=== PATIENT | male | born 1990 | race Caucasian/White ===

== ENCOUNTER 2018-10-27 16:26 | Emergency (ER) | payer OTHER, BC, SELFPAY ==
[2018-10-27 16:28] VITALS: BP 151/102; PULSE 79; RESP 16; TEMP 36.9; O2SAT 97; BMI 27.1
--- NOTE | 2018-10-27 17:13 | ED.VISSUMM ---
- ER Visit Summary Date of Service: 10/27/18 Chief Complaint: Left thumb laceration History of Present Illness: The patient is a 28 M denies fever, chills cut the base of his left at work today. This occurred about 1545 PM. No injuries. Tetanus is not up-to-date. Patient is right-hand dominant Physical Examination: Healthy male no acute distress vital signs are stable afebrile. Exam normal except the base of the left thumb there is a 3 cm laceration. Skin and subcu tissue. Otherwise the hand and thumb are neurovascular intact. No signs of infection. No signs of foreign body. Normal range of motion of his left thumb. Sensation normal cap refill distally. Test Results: None Emergency Department Course and Treatment: Tetanus updated Procedure note: Left thumb laceration. Locally anesthetized with plain lidocaine. Cleaned using Shur-Clens. Copiously irrigated with saline. Explored. Closed using simple interrupted 4-0 Ethilon suture. Proper hemostasis wound closure obtained. One length approximately 3 cm. Treatment Plan: Wound care. Suture removal in 10 days. Watch for any signs of infection. Disposition: Discharge Impression: Left thumb 3 center laceration with ER repair Tetanus updated Worker's Comp. injury This note was generated with [employer] dictation software. It may contain incorrect words, spelling, and punctuation that were not noted in review of the chart prior to signing ED Disposition - Plan for ED Patient: Referrals: Care Physician,No Primary [Primary Care Provider] -
--- NOTE | 2018-10-27 17:15 | ED.DEP ---
ED Disposition - Plan for ED Patient: Disposition: Home or Assisted Living Instructions: LACERATION, Hand Referrals: Corporate,[facility] [GROUP OF PHYSICIANS] - 10 Day for suture removal Additional Instructions: Clean and dry. You may get wet but the watch for signs of infection. Tylenol and Motrin for him. Suture removal in 10 days.
[2018-10-27] MEDS: Diphth,Pertuss(Acell),Tet Vac 0.5 ML Vial IM (17:28)
== END 2018-10-27 18:12 | disposition home or self-care (01) ==
PROVIDERS: Emergency Provider Emergency Medicine
DX: S61.012A Laceration without foreign body of left thumb without damage to nail, initial encounter (principal); Z23 Encounter for immunization; X58.XXXA Exposure to other specified factors, initial encounter; Y93.9 Activity, unspecified; Y92.9 Unspecified place or not applicable
CPT/HCPCS: 12002; 90715; 99284